=== PATIENT | female | born 1960 | race Caucasian/White ===

== ENCOUNTER → 2018-07-19 | Outpatient (CLI) | payer BC ==
--- NOTE | 2018-07-19 11:29 | KCIC ---
MR of the right ankle and foot Indication: Right foot and ankle pain, along lateral ankle in the lateral foot for several months, worse with walking.. Technique: Standard multiplanar sequences are obtained. ANKLE: Lateral: Peroneal tendons: Mild thickening and low-grade signal within the peroneus longus tendon and to a lesser extent the peroneus brevis longus tendon. Mild surrounding fluid at the level of the lateral malleolus. Lateral collateral ligaments: * Anterior talofibular ligament: Mild hypointense thickening * Calcaneofibular ligament: Mild hypointense thickening * Posterior talofibular ligament: Intact Tibiofibular syndesmosis: Anterior inferior tibiofibular ligament is intact. Tibiofibular syndesmosis is intact. Medial: Posterior tibial tendon: Intact Flexor digitorum longus tendon: Intact Flexor hallucis longus tendon: Intact Medial ligaments: No evidence of acute deltoid ligament tear Anterior: Anterior tibial tendon: Intact Extensor hallucis longus tendon: Intact Extensor digitorum longus tendon: Intact Posterior: Achilles tendon: Mild thickening at the insertion. Small enthesophyte. No acute tear. No significant retrocalcaneal bursitis. Plantar aponeurosis: Mild thickening and low signal. No acute edema or tear. Subtalar joints: Patent Tarsal sinus: Intact Talar Dome: Intact Bones: No significant lesion or acute fracture Fluid:No significant effusion. Joints: Mild generalized degenerative change with spurring. Soft tissues: Subcutaneous edema around the ankle. FOOT: No bone lesion. No acute fracture. No significant acute marrow edema. No significant joint effusion. No acute tendon disruption. No significant tendon sheath fluid. Mild thickening of the peroneus longus tendon at the level of the cuboid. Lisfranc ligament complex is intact as is tarsometatarsal joint alignment. IMPRESSION: 1. Peroneus longus and brevis tendinosis/tenosynovitis. 2. Mild insertional chronic Achilles tendinosis. 3. Mild chronic appearing plantar fasciitis. 4. 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 Electronically signed by: Pj Mohan MD (07/19/2018 11:25 AM) [facility]
== END | disposition home or self-care (01) ==
LOC: KCIC MRI 08:33
PROVIDERS: ATTEND Nurse Practitioner Adult Health
DX: M65.871 Other synovitis and tenosynovitis, right ankle and foot (principal); M76.61 Achilles tendinitis, right leg; R60.0 Localized edema
CPT/HCPCS: 73718; 73721

== ENCOUNTER → 2018-10-25 | Outpatient (CLI) | payer BC | END | disposition home or self-care (01) | LOC: PF 09:32 | PROVIDERS: ATTEND Neuromusculoskeletal Medicine, Sports Medicine | DX: R06.02 Shortness of breath (principal); E66.9 Obesity, unspecified | CPT/HCPCS: 94010 ==